=== PATIENT | female | born 1950 | race African-American/Black ===

== ENCOUNTER → 2018-01-24 | Outpatient (CLI) | payer MEDICARE ==
[2018-01-24 15:04] LABS: HEMATOCRIT 40.7 % (36.0-47.0); HEMOGLOBIN 13.4 g/dl (12.0-15.5); MEAN CORPUSCULAR HEMOGLOBIN 31.2 pg (27.0-33.0); MEAN CORPUSCULAR HGB CONC 32.9 g/dl (32.0-36.5); MEAN CORPUSCULAR VOLUME 94.9 fl (80.0-96.0); PLATELET COUNT, AUTOMATED 221 10^3/uL (150-450); RED BLOOD COUNT 4.29 10^6/uL (4.00-5.40); RED CELL DISTRIBUTION WIDTH 12.5 % (11.5-14.5); WHITE BLOOD COUNT 5.3 10^3/uL (4.0-10.0)
[2018-01-24 16:22] LABS: ALBUMIN 3.4 GM/DL (3.2-5.2); ALBUMIN/GLOBULIN RATIO 0.71 (1.00-1.93); ALKALINE PHOSPHATASE 77 U/L (45-117); ALT/SGPT 125 U/L (12-78); ANION GAP 10 MEQ/L (8-16); AST/SGOT 86 U/L (7-37); BILIRUBIN,TOTAL 0.3 MG/DL (0.2-1.0); BLOOD UREA NITROGEN 24 MG/DL (7-18); CALCIUM LEVEL 9.3 MG/DL (8.8-10.2); CARBON DIOXIDE LEVEL 24 MEQ/L (21-32); CHLORIDE LEVEL 102 MEQ/L (98-107); CREATININE FOR GFR 1.23 MG/DL (0.55-1.30); GLOMERULAR FILTRATION RATE 56.3 (>45); POTASSIUM SERUM 4.1 MEQ/L (3.5-5.1); SODIUM LEVEL 136 MEQ/L (136-145); TOTAL PROTEIN 8.2 GM/DL (6.4-8.2)
[2018-01-24 16:56] LABS: GLUCOSE, FASTING 519 MG/DL (70-100)
[2018-01-26 12:01] LABS: HEPATITIS B SURFACE ANTIGEN NEGATIVE (NEGATIVE)
[2018-01-26 12:14] LABS: HEPATITIS B SURFACE ANTIBODY NEGATIVE (POSITIVE)
[2018-02-01 14:14] LABS: ALPHA 2-MACROGLOBULIN 410 mg/dL (110-276); ALT 121 IU/L (0-40); APOLIPOPROTEIN A-1 156 mg/dL (116-209); FIBROSIS SCORE 0.43 (0.00-0.21); FIBROSIS STAGE F1-F2 (.); GGT 53 IU/L (0-60); HAPTOGLOBIN 142 mg/dL (34-200); HEPATITIS A IgG TOTAL Negative (Negative); HEPATITIS C QUANTITATION 1605980 IU/mL (.); HEPATITIS C VIRUS GENOTYPE 1a (.); NECROINFLAM SCORE 0.69 (0.00-0.17); NECROINFLAMM GRADE A3-Severe activity (.); TOTAL BILIRUBIN 0.2 mg/dL (0.0-1.2)
== END ==
LOC: M LAB 13:26
DX: R76.8 Other specified abnormal immunological findings in serum (principal); J45.909 Unspecified asthma, uncomplicated; E11.9 Type 2 diabetes mellitus without complications; I10 Essential (primary) hypertension; Z13.220 Encounter for screening for lipoid disorders; Z12.2 Encounter for screening for malignant neoplasm of respiratory organs
CPT/HCPCS: 71046

== ENCOUNTER → 2018-01-31 | Outpatient (CLI) | payer MEDICARE ==
[2018-01-31 14:36] LABS: BASO % 0.4 % (0.0-1.0); EOS % 0.8 % (0.0-3.0); HEMATOCRIT 41.1 % (36.0-47.0); HEMOGLOBIN 13.6 g/dl (12.0-15.5); IMMATURE GRANULOCYTE % 0.2 % (0-3.0); LYMPH # 2.4 10^3/uL (1.5-4.5); LYMPH % 48.8 % (24.0-44.0); MEAN CORPUSCULAR HEMOGLOBIN 31.6 pg (27.0-33.0); MEAN CORPUSCULAR HGB CONC 33.1 g/dl (32.0-36.5); MEAN CORPUSCULAR VOLUME 95.4 fl (80.0-96.0); MONO # 0.6 10^3/uL (0.0-0.8); MONO % 11.1 % (0.0-5.0); NEUTROPHILS # 1.9 10^3/uL (1.8-7.7); NEUTROPHILS % 38.7 % (36.0-66.0); PLATELET COUNT, AUTOMATED 195 10^3/uL (150-450); RED BLOOD COUNT 4.31 10^6/uL (4.00-5.40); RED CELL DISTRIBUTION WIDTH 12.3 % (11.5-14.5)
[2018-01-31 15:01] LABS: ESTIMATED AVERAGE GLUCOSE 206 MG/DL (60-110); HEMOGLOBIN A1c 8.8 %
[2018-01-31 15:10] LABS: CREATININE, URINE 39.9 MG/DL; MALB URINE SIEMENS 16.2 MG/L; MAU/CREAT RATIO 40.6 MCG/MG (0.0-30.0)
[2018-01-31 15:11] LABS: ALBUMIN 3.4 GM/DL (3.2-5.2); ALBUMIN/GLOBULIN RATIO 0.74 (1.00-1.93); ALKALINE PHOSPHATASE 81 U/L (45-117); ALT/SGPT 177 U/L (12-78); ANION GAP 9 MEQ/L (8-16); AST/SGOT 125 U/L (7-37); BILIRUBIN,TOTAL 0.3 MG/DL (0.2-1.0); BLOOD UREA NITROGEN 23 MG/DL (7-18); CALCIUM LEVEL 9.1 MG/DL (8.8-10.2); CARBON DIOXIDE LEVEL 26 MEQ/L (21-32); CHLORIDE LEVEL 99 MEQ/L (98-107); CHOLESTEROL LEVEL 164 MG/DL (<200); CHOLESTEROL RISK RATIO 2.603 (<5); CREATININE FOR GFR 1.25 MG/DL (0.55-1.30); FREE T4 1.06 NG/DL (0.76-1.46); GLOMERULAR FILTRATION RATE 55.3 (>45); HDL CHOLESTEROL 63 MG/DL (>40); LDL CHOLESTEROL 67.4 MG/DL (<100); NON-HDL-C 101 MG/DL; SODIUM LEVEL 134 MEQ/L (136-145); TRIGLYCERIDES LEVEL 168 MG/DL (<150)
[2018-01-31 15:12] LABS: GLUCOSE, FASTING 565 MG/DL (70-100)
[2018-01-31 16:32] LABS: HIV 1&2 SCREEN CENTAUR NEGATIVE (NEGATIVE)
[2018-01-31 16:45] LABS: HEP C VIRUS AB SCREEN MEDICARE > 11.0 INDEX (<0.8)
[2018-02-03 14:11] LABS: HCV RNA NAA QUALITATIVE Positive (Negative)
== END ==
LOC: M LAB 14:06
DX: E11.9 Type 2 diabetes mellitus without complications (principal); Z11.4 Encounter for screening for human immunodeficiency virus [HIV]; I10 Essential (primary) hypertension; Z11.59 Encounter for screening for other viral diseases; Z13.220 Encounter for screening for lipoid disorders
CPT/HCPCS: 84443

== ENCOUNTER → 2018-03-01 | Outpatient (CLI) | payer MEDICARE, MEDICAID | LOC: M RAD 11:25 | DX: J45.909 Unspecified asthma, uncomplicated (principal) | CPT/HCPCS: 71046 ==

== ENCOUNTER → 2018-03-28 | Outpatient (CLI) | payer MEDICARE, MEDICAID | LOC: M RAD 12:32 | DX: Z12.2 Encounter for screening for malignant neoplasm of respiratory organs (principal); F17.210 Nicotine dependence, cigarettes, uncomplicated (principal); R91.8 Other nonspecific abnormal finding of lung field | CPT/HCPCS: G0297 ==

== ENCOUNTER → 2018-06-14 | Outpatient (REF) | payer MEDICARE | LOC: M SFHCPLAZ 10:12 | DX: B18.2 Chronic viral hepatitis C (principal); Z53.8 Procedure and treatment not carried out for other reasons ==

== ENCOUNTER → 2018-06-14 | Outpatient (CLI) | payer MEDICARE ==
[2018-06-14 12:17] LABS: ALBUMIN 3.3 GM/DL (3.2-5.2); ALBUMIN/GLOBULIN RATIO 0.65 (1.00-1.93); ALKALINE PHOSPHATASE 81 U/L (45-117); ALT/SGPT 21 U/L (12-78); AST/SGOT 13 U/L (7-37); BILIRUBIN,DIRECT < 0.1 MG/DL (0.0-0.2); BILIRUBIN,TOTAL 0.2 MG/DL (0.2-1.0); TOTAL PROTEIN 8.4 GM/DL (6.4-8.2)
[2018-06-18 14:17] LABS: HEPATITIS C QUANTITATION HCV Not Detected IU/mL (.)
== END ==
LOC: M LAB 11:03
DX: B18.2 Chronic viral hepatitis C (principal)
CPT/HCPCS: 80076

== ENCOUNTER → 2018-06-20 | Outpatient (CLI) | payer MEDICARE ==
[2018-06-20 13:07] LABS: ALBUMIN 3.4 GM/DL (3.2-5.2); ALBUMIN/GLOBULIN RATIO 0.67 (1.00-1.93); ALKALINE PHOSPHATASE 75 U/L (45-117); ALT/SGPT 21 U/L (12-78); ANION GAP 7 MEQ/L (8-16); AST/SGOT 16 U/L (7-37); BILIRUBIN,TOTAL 0.3 MG/DL (0.2-1.0); BLOOD UREA NITROGEN 23 MG/DL (7-18); CALCIUM LEVEL 9.4 MG/DL (8.8-10.2); CARBON DIOXIDE LEVEL 30 MEQ/L (21-32); CHLORIDE LEVEL 103 MEQ/L (98-107); CREATININE FOR GFR 1.03 MG/DL (0.55-1.30); GLOMERULAR FILTRATION RATE > 60.0 (>45); GLUCOSE, FASTING 116 MG/DL (70-100); POTASSIUM SERUM 3.5 MEQ/L (3.5-5.1); SODIUM LEVEL 140 MEQ/L (136-145); TOTAL PROTEIN 8.5 GM/DL (6.4-8.2)
[2018-06-20 15:42] LABS: ESTIMATED AVERAGE GLUCOSE 171 MG/DL (60-110); HEMOGLOBIN A1c 7.6 %
== END ==
LOC: M LAB 11:33
DX: E11.65 Type 2 diabetes mellitus with hyperglycemia (principal)
CPT/HCPCS: 80053

== ENCOUNTER → 2018-06-20 | Outpatient (REF) | payer MEDICARE | LOC: M SFHCPLAZ 10:09 | DX: E11.65 Type 2 diabetes mellitus with hyperglycemia (principal); Z53.8 Procedure and treatment not carried out for other reasons ==

== ENCOUNTER → 2018-06-21 | Outpatient (REF) | payer MEDICARE ==
[2018-06-21 16:30] LABS: MALB URINE SIEMENS 43.1 MG/L
[2018-06-21 16:34] LABS: MAU/CREAT RATIO 34.8 MCG/MG (0.0-30.0)
== END ==
LOC: M LAB REF 14:52
DX: E11.65 Type 2 diabetes mellitus with hyperglycemia (principal)
CPT/HCPCS: 82043

== ENCOUNTER → 2018-07-02 | Outpatient (CLI) | payer MEDICARE | LOC: M WHC 09:39 | DX: Z13.820 Encounter for screening for osteoporosis (principal) | CPT/HCPCS: 77080 ==

== ENCOUNTER → 2018-07-16 | Outpatient (CLI) | payer MEDICARE ==
[2018-07-16 15:40] LABS: TOTAL PROTEIN 8.7 GM/DL (6.4-8.2)
[2018-07-17 12:54] LABS: ALBUMIN % 45.1 % (55.8-66.1); ALPHA-1-GLOBULIN % 4.8 % (2.9-4.9); ALPHA-2-GLOBULINS % 13.9 % (7.1-11.8); BETA-1-GLOBULINS % 6.2 % (4.7-7.2); BETA-2-GLOBULINS % 5.1 % (3.2-6.5)
[2018-07-17 12:55] LABS: ALBUMIN 3.92 GM/DL (3.29-5.55); ALPHA-1-GLOBULINS 0.42 GM/DL (0.17-0.41); ALPHA-2-GLOBULINS 1.21 GM/DL (0.42-0.99); BETA-1-GLOBULINS 0.54 GM/DL (0.28-0.60); BETA-2-GLOBULINS 0.44 GM/DL (0.19-0.55); GAMMA GLOBULIN % 24.9 % (11.1-18.8); GAMMA GLOBULINS 2.17 GM/DL (0.65-1.58)
[2018-07-19 00:08] LABS: FREE KAPPA LIGHT CHAINS SERUM 55.5 mg/L (3.3-19.4); FREE LAMBDA LIGHT CHAINS SERUM 33.5 mg/L (5.7-26.3); KAPPA/LAMBDA RATIO SERUM 1.66 (0.26-1.65)
== END ==
LOC: M LAB 13:54
DX: R77.8 Other specified abnormalities of plasma proteins (principal)
CPT/HCPCS: 84165

== ENCOUNTER → 2018-08-24 | Outpatient (CLI) | payer MEDICARE, MEDICAID | LOC: M RAD 13:45 | DX: M19.042 Primary osteoarthritis, left hand (principal) | CPT/HCPCS: 73130 ==

== ENCOUNTER → 2018-09-12 | Outpatient (CLI) | payer MEDICARE, MEDICAID ==
[2018-09-12 16:39] LABS: ESTIMATED AVERAGE GLUCOSE 183 MG/DL (60-110)
== END ==
LOC: M LAB 13:20
DX: E11.65 Type 2 diabetes mellitus with hyperglycemia (principal)
CPT/HCPCS: 83036

== ENCOUNTER → 2018-09-13 | Outpatient (REF) | payer MEDICARE, MEDICAID | LOC: M SFHCPLAZ 10:51 | DX: B18.2 Chronic viral hepatitis C (principal); E11.9 Type 2 diabetes mellitus without complications; Z53.8 Procedure and treatment not carried out for other reasons ==

== ENCOUNTER 2018-10-26 10:23 | Emergency (ER) | payer MEDICARE, MEDICAID ==
[~2018-10-26] VITALS: Ht 165.1 cm; Wt 86.4 kg
--- NOTE | 2018-10-26 10:49 | ECGEPIP ---
Stationary ECG Study [facility] - ED Test Date: 2018-10-26 Pat Name: SHAVON IRVIN Department: Room: - Gender: F [employer] Tender: TERRENCE : 1950 Requested By: Rodrigo Candelaria Order Number: [id number] Reading MD: Jenni Sharma Measurements Intervals [place] Rate: 95 P: 42 DC: 158 QRS: -11 QRSD: 97 T: -70 QT: 339 QTc: 428 Interpretive Statements SINUS RHYTHM POSSIBLE LEFT ATRIAL ENLARGEMENT ST DEVIATION AND MODERATE T-WAVE ABNORMALITY, CONSIDER ANTEROLATERAL ISCHEMIA ST DEVIATION AND MODERATE T-WAVE ABNORMALITY, CONSIDER INFERIOR ISCHEMIA NO PRIOR FOR COMPARISON Electronically Signed On 10-26-2018 10:49:11 EST by Jenni Sharma
[2018-10-26 11:07] LABS: BASO % 0.3 % (0.0-1.0); HEMATOCRIT 45.8 % (36.0-47.0); HEMOGLOBIN 15.3 g/dl (12.0-15.5); LYMPH # 3.1 10^3/uL (1.5-4.5); LYMPH % 29.4 % (24.0-44.0); MEAN CORPUSCULAR HEMOGLOBIN 30.6 pg (27.0-33.0); MEAN CORPUSCULAR HGB CONC 33.4 g/dl (32.0-36.5); MEAN CORPUSCULAR VOLUME 91.6 fl (80.0-96.0); MONO # 1.5 10^3/uL (0.0-0.8); MONO % 14.3 % (0.0-5.0); NEUTROPHILS # 5.9 10^3/uL (1.8-7.7); NEUTROPHILS % 55.6 % (36.0-66.0); PLATELET COUNT, AUTOMATED 234 10^3/uL (150-450); WHITE BLOOD COUNT 10.6 10^3/uL (4.0-10.0)
--- NOTE | 2018-10-26 11:09 | REP ---
Chest one-view HISTORY: Cough Comparison: 03/01/2018 A minimal increase in interstitial markings is present in the lungs consistent with chronic interstitial change. The heart is normal in size. The pulmonary vasculature is normal in appearance. Impression: Chronic interstitial change. Electronically Signed by Fransisco Lisa MD 10/26/2018 11:00 A
[2018-10-26 11:40] LABS: ALBUMIN 3.2 GM/DL (3.2-5.2); ALT/SGPT 18 U/L (12-78); BILIRUBIN,DIRECT 0.2 MG/DL (0.0-0.2); BILIRUBIN,TOTAL 0.5 MG/DL (0.2-1.0); BLOOD UREA NITROGEN 21 MG/DL (7-18); CALCIUM LEVEL 9.2 MG/DL (8.8-10.2); CARBON DIOXIDE LEVEL 26 MEQ/L (21-32); CHLORIDE LEVEL 97 MEQ/L (98-107); CK-MB VALUE MASS < 1.0 NG/ML (<3.6); CPK CREATINE PHOSPHOKINASE 191 U/L (26-192); CREATININE FOR GFR 1.44 MG/DL (0.55-1.30); GLOMERULAR FILTRATION RATE 46.8 (>45); GLUCOSE, FASTING 158 MG/DL (70-100); MB/CK RELATIVE INDEX 0.52 (< OR =4); POTASSIUM SERUM 3.3 MEQ/L (3.5-5.1); SODIUM LEVEL 134 MEQ/L (136-145); THYROID STIMULATING HORMONE 0.249 uIU/ML (0.358-3.740); THYROXINE (T4) 9.9 UG/DL (4.5-12.0); TOTAL PROTEIN 8.9 GM/DL (6.4-8.2); TROPONIN I < 0.02 NG/ML (< 0.10)
[2018-10-26 12:40] LABS: INFLUENZA A AMPLIFICATION NEGATIVE (NEGATIVE); INFLUENZA B AMPLIFICATION NEGATIVE (NEGATIVE)
[2018-10-26] MEDS ORDERED: CHLO125TA PO (13:11)
[2018-10-26] MEDS ORDERED: SUCR1TAB56 PO (13:11)
[2018-10-26] MEDS ORDERED: LANTINJ4 SQ (13:11)
[2018-10-26] MEDS ORDERED: PROAAER10 INH (13:11)
[2018-10-26] MEDS ORDERED: ATOR1TAB19 PO (13:11)
[2018-10-26] MEDS ORDERED: SYMB16INH INH (13:11)
[2018-10-26] MEDS ORDERED: METF-839 PO (13:11)
[2018-10-26] MEDS ORDERED: OMEP40CA2 PO (13:11)
[2018-10-26] MEDS ORDERED: JARD1TAB PO (13:11)
[2018-10-26] MEDS ORDERED: POTASSIUM CHLORIDE 10 MEQ SR TABLET PO ONE (13:15)
[2018-10-26 13:16] VITALS: BP 143/73
== END 2018-10-26 13:46 | disposition home or self-care (01) ==
LOC: M ED 10:23
DX: B34.9 Viral infection, unspecified (principal); N18.3 Chronic kidney disease, stage 3 (moderate); E11.9 Type 2 diabetes mellitus without complications; J45.909 Unspecified asthma, uncomplicated; J44.9 Chronic obstructive pulmonary disease, unspecified; K21.9 Gastro-esophageal reflux disease without esophagitis; F17.200 Nicotine dependence, unspecified, uncomplicated; Z88.0 Allergy status to penicillin; Z88.2 Allergy status to sulfonamides; Z88.1 Allergy status to other antibiotic agents; Z86.19 Personal history of other infectious and parasitic diseases; Z87.820 Personal history of traumatic brain injury; Z87.81 Personal history of (healed) traumatic fracture; Z79.4 Long term (current) use of insulin; Z79.899 Other long term (current) drug therapy

== ENCOUNTER 2018-10-27 12:04 | Emergency (ER) | payer MEDICARE, MEDICAID ==
[~2018-10-27] VITALS: Ht 165.1 cm; Wt 86.4 kg
[2018-10-27 12:04] VITALS: BP 127/78
[~2018-10-27 12:04] MED LIST: ATOR1TAB19 PO; CHLO125TA PO; JARD1TAB PO; LANTINJ4 SQ; METF-839 PO; OMEP40CA2 PO; PROAAER10 INH; SUCR1TAB56 PO; SYMB16INH INH
== END 2018-10-27 12:46 | disposition home or self-care (01) ==
LOC: M ED 12:04
DX: S50.12XA Contusion of left forearm, initial encounter (principal); X58.XXXA Exposure to other specified factors, initial encounter; Y92.238 Other place in hospital as the place of occurrence of the external cause; E11.9 Type 2 diabetes mellitus without complications; I10 Essential (primary) hypertension; J45.909 Unspecified asthma, uncomplicated; F17.210 Nicotine dependence, cigarettes, uncomplicated; Z88.0 Allergy status to penicillin; Z88.2 Allergy status to sulfonamides; Z79.899 Other long term (current) drug therapy; Z79.51 Long term (current) use of inhaled steroids; Z79.4 Long term (current) use of insulin

== ENCOUNTER → 2018-10-31 | Outpatient (CLI) | payer MEDICARE, MEDICAID ==
--- NOTE | 2018-10-31 10:31 | REP ---
Clinical: Abnormal lung findings. Technique: Axial noncontrast images from the thoracic inlet to the upper abdomen with coronal and sagittal re-formations. Comparison: 03/28/2018. Findings: Moderate emphysematous changes are appreciated along with mild bronchiectasis and mild scattered subpleural fibrosis primarily involving the left base. Scattered areas of scarring are also identified. Previously identified 5 mm subpleural density along the lateral left upper lobe is again identified (image 35) and unchanged. This likely represents a small focal area of scarring rather than active pathology. No further consolidation, significant nodule, or mass lesion. Small amount of presumed mucous identified with in the mid trachea (images 15-26). Mediastinum demonstrates atherosclerotic changes to the thoracic aorta and coronary arteries without aneurysm or cardiomegaly. No pericardial effusion. No significant adenopathy. Surrounding musculoskeletal structures are intact. Impression: 1. Moderate emphysematous changes with minimal scattered scarring, bronchiectasis and mild subpleural fibrosis. 2. Previously identified subpleural nodular density in the periphery of the left upper lobe remains stable and most likely represents focal scarring. Consider follow-up examination in 6-9 months for reevaluation. 3. No further acute mediastinal or pleuroparenchymal process appreciated. 4. Small amount of presumed mucous in the trachea along the dependent portion. 5. Atherosclerotic disease. Electronically Signed by Benedicto Urban MD 10/31/2018 10:22 A
== END ==
LOC: M RAD 08:56
PROVIDERS: ATTEND Physician Assistant
DX: R91.8 Other nonspecific abnormal finding of lung field (principal); J43.9 Emphysema, unspecified; I25.10 Atherosclerotic heart disease of native coronary artery without angina pectoris; I70.0 Atherosclerosis of aorta

== ENCOUNTER → 2018-12-13 | Outpatient (CLI) | payer MEDICARE, MEDICAID ==
[2018-12-13 11:51] LABS: ALT/SGPT 21 U/L (12-78); BILIRUBIN,TOTAL 0.3 MG/DL (0.2-1.0); BLOOD UREA NITROGEN 25 MG/DL (7-18); CALCIUM LEVEL 9.8 MG/DL (8.8-10.2); CARBON DIOXIDE LEVEL 28 MEQ/L (21-32); CHLORIDE LEVEL 102 MEQ/L (98-107); CREATININE FOR GFR 1.03 MG/DL (0.55-1.30); GLOMERULAR FILTRATION RATE > 60.0 (>45); GLUCOSE, FASTING 162 MG/DL (70-100); POTASSIUM SERUM 4.3 MEQ/L (3.5-5.1); SODIUM LEVEL 140 MEQ/L (136-145); TRIGLYCERIDES LEVEL 84 MG/DL (<150)
[2018-12-13 11:52] LABS: ALBUMIN 3.7 GM/DL (3.2-5.2); CHOLESTEROL LEVEL 167 MG/DL (<200); CHOLESTEROL RISK RATIO 2.455 (<5); HDL CHOLESTEROL 68 MG/DL (>40); LDL CHOLESTEROL 82 MG/DL (<100); NON-HDL-C 99 MG/DL; TOTAL PROTEIN 8.4 GM/DL (6.4-8.2)
[2018-12-13 12:50] LABS: HEMOGLOBIN A1c 7.9 %
== END ==
LOC: M LAB 09:07
PROVIDERS: ATTEND Physician Assistant
DX: E78.5 Hyperlipidemia, unspecified (principal); E11.65 Type 2 diabetes mellitus with hyperglycemia

== ENCOUNTER → 2019-04-27 | Outpatient (REF) | payer MEDICARE, MEDICAID | LOC: M SFHCPLAZ 10:51 | PROVIDERS: ATTEND Physician Assistant Medical | DX: J06.9 Acute upper respiratory infection, unspecified (principal) ==

== ENCOUNTER → 2019-05-25 | Outpatient (CLI) | payer MEDICARE, MEDICAID ==
[2019-05-25 10:06] LABS: BASO % 0.3 % (0.0-1.0); EOS # 0.1 10^3/uL (0.0-0.50); EOS % 1.7 % (0.0-3.0); HEMATOCRIT 42.3 % (36.0-47.0); HEMOGLOBIN 13.8 g/dl (12.0-15.5); LYMPH # 2.8 10^3/uL (1.5-4.5); LYMPH % 48.9 % (24.0-44.0); MEAN CORPUSCULAR HEMOGLOBIN 30.7 pg (27.0-33.0); MEAN CORPUSCULAR HGB CONC 32.6 g/dl (32.0-36.5); MEAN CORPUSCULAR VOLUME 94.2 fl (80.0-96.0); MONO # 0.5 10^3/uL (0.0-0.8); NEUTROPHILS # 2.4 10^3/uL (1.8-7.7); NEUTROPHILS % 40.9 % (36.0-66.0); PLATELET COUNT, AUTOMATED 200 10^3/uL (150-450); RED BLOOD COUNT 4.49 10^6/uL (4.00-5.40); WHITE BLOOD COUNT 5.8 10^3/uL (4.0-10.0)
[2019-05-25 10:35] LABS: ALBUMIN 3.4 GM/DL (3.2-5.2); ALT/SGPT 17 U/L (12-78); BILIRUBIN,TOTAL 0.3 MG/DL (0.2-1.0); BLOOD UREA NITROGEN 18 MG/DL (7-18); CALCIUM LEVEL 9.2 MG/DL (8.8-10.2); CARBON DIOXIDE LEVEL 28 MEQ/L (21-32); CHLORIDE LEVEL 104 MEQ/L (98-107); CPK CREATINE PHOSPHOKINASE 181 U/L (26-192); CREATININE FOR GFR 1.01 MG/DL (0.55-1.30); GLOMERULAR FILTRATION RATE > 60.0 (>45); GLUCOSE, FASTING 250 MG/DL (70-100); POTASSIUM SERUM 3.7 MEQ/L (3.5-5.1); SODIUM LEVEL 138 MEQ/L (136-145); TOTAL PROTEIN 7.7 GM/DL (6.4-8.2)
[2019-05-25 10:36] LABS: FREE T4 0.99 NG/DL (0.76-1.46)
[2019-05-25 10:48] LABS: HEMOGLOBIN A1c 9.7 %
== END ==
LOC: M LAB 09:32
PROVIDERS: ATTEND Physician Assistant Medical
DX: I10 Essential (primary) hypertension (principal); E78.5 Hyperlipidemia, unspecified; E66.9 Obesity, unspecified; E11.9 Type 2 diabetes mellitus without complications; J06.9 Acute upper respiratory infection, unspecified

== ENCOUNTER → 2019-05-28 | Outpatient (REF) | payer MEDICARE, MEDICAID ==
[~2019-05-28] MED LIST changes: +METF500T13; -OMEP40CA2 PO; +OMEP40CA97 PO
[2019-05-28 14:53] LABS: MALB URINE SIEMENS 6.7 MG/L; MAU/CREAT RATIO 14.8 MCG/MG (0.0-30.0)
== END ==
LOC: M SFHCPLAZ 13:33
PROVIDERS: ATTEND Physician Assistant Medical
DX: I10 Essential (primary) hypertension (principal); E78.5 Hyperlipidemia, unspecified; E66.9 Obesity, unspecified; E11.9 Type 2 diabetes mellitus without complications; J06.9 Acute upper respiratory infection, unspecified

== ENCOUNTER → 2019-05-30 | Outpatient (CLI) | payer MEDICARE, MEDICAID ==
[~2019-05-30] MED LIST changes: -METF500T13; +OMEP40CA2 PO; -OMEP40CA97 PO
--- NOTE | 2019-05-30 14:40 | REP ---
Bilateral lower extremity arterial Doppler ultrasound: History: Lower extremity claudication. Sonographic findings: Ankle brachial indices are normal measured at 1.1 in each lower extremity. Normal triphasic or biphasic arterial wave forms are noted throughout the lower extremities. Minimal atherosclerotic plaquing is seen. No significant stenosis is noted. Velocity chart right lower extremity arteries: CF A 88 cm/S Profunda 70 Proximal SFA 97 Mid SFA 87 Distal SFA 109 Popliteal 49 Proximal AT A 35 Tibioperoneal trunk 60 Proximal DINING ROOM HOSTESS 61 Distal DINING ROOM HOSTESS 64 Distal AT A 37 Velocity chart left lower extremity arteries: CF A 90 cm/S Profunda 83 Proximal SFA 88 Mid SFA 83 Distal SFA 96 Popliteal 70 Proximal AT A 54 Tibioperoneal trunk 65 Proximal DINING ROOM HOSTESS 56 Distal DINING ROOM HOSTESS 68 Distal AT A 36 Electronically Signed by Benji Etienne MD 05/30/2019 02:31 P
== END ==
LOC: M RAD 09:07
PROVIDERS: ATTEND Physician Assistant Medical
DX: I73.9 Peripheral vascular disease, unspecified (principal)

== ENCOUNTER 2019-09-06 14:59 | Emergency (ER) | payer MEDICARE, MEDICAID ==
[~2019-09-06] VITALS: Ht 165.1 cm; Wt 85.9 kg
[~2019-09-06 14:59] MED LIST changes: -OMEP40CA2 PO; +OMEP40CA97 PO
[2019-09-06] MEDS ORDERED: METF500T13 (16:02)
[2019-09-06 17:55] VITALS: BP 131/80
== END 2019-09-06 18:26 | disposition home or self-care (01) ==
LOC: M ED 14:59
DX: Z60.8 Other problems related to social environment (principal); E11.65 Type 2 diabetes mellitus with hyperglycemia; J45.909 Unspecified asthma, uncomplicated; J44.9 Chronic obstructive pulmonary disease, unspecified; Z79.899 Other long term (current) drug therapy; Z79.4 Long term (current) use of insulin; Z88.0 Allergy status to penicillin; Z88.1 Allergy status to other antibiotic agents; Z88.2 Allergy status to sulfonamides; F17.210 Nicotine dependence, cigarettes, uncomplicated